=== PATIENT | female | born 1995 | race African-American/Black ===

== ENCOUNTER 2018-05-09 23:47 | Inpatient (IN) ==
[2018-05-10] MEDS ORDERED: RINGER'S SOLUTION,LACTATED 1,000 ML IV ONE (00:02)
[2018-05-10] MEDS ORDERED: OXYTOCIN/DEXTROSE 5%-WATER 30 UNITS/500 ML BAG IV ONE ×2 (00:02→05:15)
[2018-05-10] MEDS ORDERED: BUTORPHANOL TARTRATE 2 MG/ML VIAL IV PRN (00:02)
[2018-05-10] MEDS ORDERED: MISOPROSTOL 100 MCG TABLET VG PRN (00:02)
[2018-05-10] MEDS ORDERED: RINGER'S SOLUTION,LACTATED 1,000 ML IV PRN (00:02)
[2018-05-10] MEDS ORDERED: PENICILLIN G POTASSIUM 5 MILLIONUNT in DEXTROSE 5 % IN WATER 100 ML IV ONE ×2 (00:02)
[2018-05-10 00:29] LABS: Hematocrit 27.9 % (37.0-47.0); Hemoglobin 8.3 gm/dL (12.5-16.0); Mean Cell Volume 76.6 fl (78-100); Mean Corpuscular Hemoglobin 22.8 pg (27-31); Mean Corpuscular Hgb Conc 29.7 g/dl (32-36); Mean Platelet Volume 11.8 fl (8-12.5); Platelet Count 203 K/mm3 (150-450); Red Blood Count 3.64 M/mm3 (4.2-5.4); Red Cell Distribution Width 18.4 % (11.5-14.0); White Blood Count 10.6 K/mm3 (4.0-10.5)
[2018-05-10 00:31] LABS: Total Cells Counted 100
[2018-05-10 00:48] LABS: Atypical (Reactive) Lymph 2 % (0-2); Band 2 % (0-2.0); Lymphocyte 25 % (20-51); Monocyte 3 % (0-9); Neutrophil 68 % (42-75); Neutrophil # 7.2 K/mm3 (1.3-6.0)
[2018-05-10 00:49] LABS: Anisocytosis 2+; Hypochromia 2+; Platelet Estimate Normal (NORMAL)
[2018-05-10 00:50] LABS: Microcytosis 2+; Tear Drop Cells 1+
[2018-05-10 02:16] LABS: Cocaine Ur Negative (NEGATIVE); Urine Barbiturate Negative (NEGATIVE); Urine Benzodiazepines Negative (NEGATIVE); Urine Opiates Negative (NEGATIVE); Urine PCP Negative (NEGATIVE); Urine THC Negative (NEGATIVE)
[2018-05-10] MEDS ORDERED: PENICILLIN G POTASSIUM 2.5 MILLIONUNT in DEXTROSE 5 % IN WATER 100 ML IV SCH ×2 (04:02)
[2018-05-10] MEDS ORDERED: NALOXONE HCL 1 MG/1 ML SYRG IV PRN (04:28)
[2018-05-10] MEDS ORDERED: ONDANSETRON HCL/PF 2 MG/ML VIAL IV PRN (04:28)
[2018-05-10] MEDS ORDERED: BUPIVACAINE HCL/0.9 % NACL/PF 250 ML EP PRN (04:28)
[2018-05-10] MEDS ORDERED: fentaNYL CITRATE/PF 50 MCG/ML AMPUL IT SCH (04:30)
--- NOTE | 2018-05-10 05:09 | ANES ---
Anesthesia Pre Procedure Eval Vitals/Labs: Last Vital Signs Temp 36.7 C 05/10/18 00:20 Pulse 77 05/10/18 00:20 Resp 16 05/10/18 00:20 BP 127/64 05/10/18 00:20 Pulse Ox 99 05/10/18 00:20 HOME MEDICATIONS ferrous sulfate 325 mg (65 mg iron) tablet 325 mg PO DAILY tab 01/08/18 [Last Taken 01/26/18] vitamin,calcium,vvhcacpu-mjhr-nfnlh acid tablet 1 tab PO DAILY 01/08/18 [Last Taken 01/26/18] Allergies/Adverse Reactions: Allergies Allergy/AdvReac Type Severity Reaction Status Date / Time No Known Allergies Allergy Verified 05/09/18 23:54 - Planned Procedure Planned Procedure: INDUCTION 201705-10-18 Medication List Reviewed:: Yes Allergies Verified: Yes Medical History (Last Reviewed 05/10/18 @ 05:04 by Alberto Chavira CRNA) state, incidental (Acute) Onset Date: 08/12/17 No active medical problems Surgical History (Last Reviewed 05/10/18 @ 05:04 by Alberto Chavira CRNA) Onset Date: 01/2017 Elective Family History (Last Reviewed 05/10/18 @ 05:04 by Alberto Chavira CRNA) Father Heart disease Dialysis patient Grandfather Cancer Grandmother Hypertension Mother Asthma - Family Anesthesia History Family History:: no untoward family reactions to anesthesia, no familial bleeding tendencies, no family history of clotting disorders, no family history of premature - Airway/Neck/Teeth Within Normal Limits:: Yes - Anesthesia Assessment and Plan ASA Class: PS, II Anesthesia Type Plan: Epidural - Called for epidural at approximately 0440. On arrival, just prior to five, patient had delivered.
[2018-05-10] MEDS ORDERED: BENZOCAINE/MENTHOL 81 SPRAY CAN TP PRN (05:15)
[2018-05-10] MEDS ORDERED: SENNOSIDES 8.6 MG TABLET PO PRN (05:15)
[2018-05-10] MEDS ORDERED: BISACODYL 10 MG SUPP.RECT RC PRN (05:15)
[2018-05-10] MEDS ORDERED: HYDROCORTISONE 30 APPL TUBE TP PRN (05:15)
[2018-05-10] MEDS ORDERED: diphenhydrAMINE HCL 25 MG CAPSULE PO PRN (05:15)
[2018-05-10] MEDS ORDERED: GLYCERIN/WITCH HAZEL LEAF 40 APPL BOX TP PRN (05:15)
--- NOTE | 2018-05-10 05:36 | OR ---
Operative Report - Dictated Report Narrative: Spontaneous Vaginal Delivery Note: 23 yo, , 39.3 weeks Elective induction of labor with cytotec 25 mcg per vagina x 1. GBS positive on penicillin SROM Analgesia: none SROM at 3 cm. Rapid progression from 5.5 cm to complete in less than 30 min. Head delivered in MAXIMO over the perineum. Nuchal cord x 1, reduced. Shoulder delivered and the rest of the baby delivered with ease. Baby cried at perineum. Baby placed on maternal abdomen for drying and care by the nursing. Cord was clamped and cut by the nurses (Briseyda and López). Cord blood was obtained. Placenta delivered intact with a 3 vessel cord. Mother and baby tolerated the delivery well. Due to the precipitous delivery, baby and placenta were delivered by the nurses. I examined the patient right after delivery and fundus was firm at umbilicus and there was no laceration. EBL 150 ml. Infant: female, 3297 grams, 7 lbs and 4.3 oz. 9/9. Time of delivery: 04:47 Markel Schaefer MD
[2018-05-10] MEDS: IBUPROFEN 800 MG TABLET PO PRN ×2 (06:26→19:26)
[2018-05-10] MEDS: HYDROcodone/ACETAMINOPHEN 1 EACH TABLET PO PRN ×2 (09:49→15:24)
[2018-05-10] MEDS: DOCUSATE SODIUM 100 MG CAPSULE PO SCH ×2 (09:49→23:18)
[2018-05-10] MEDS: FERROUS SULFATE 325 MG TABLET PO SCH ×2 (09:49→16:44)
[2018-05-11] MEDS: HYDROcodone/ACETAMINOPHEN 1 EACH TABLET PO PRN ×2 (04:19→21:12)
[2018-05-11] MEDS: IBUPROFEN 800 MG TABLET PO PRN ×2 (04:19→13:41)
[2018-05-11] MEDS: FERROUS SULFATE 325 MG TABLET PO SCH ×2 (09:10→17:49)
[2018-05-11] MEDS: DOCUSATE SODIUM 100 MG CAPSULE PO SCH ×2 (09:10→21:08)
--- NOTE | 2018-05-11 13:18 | PN ---
Subjective - Date and Time Seen Date: 05/11/18 Subjective Narrative: day 1, s/p no complaints. bottle feeding. normal lochia. Objective - Vitals Vitals: Last Vital Signs Temp 36.8 C 05/11/18 11:30 Pulse 72 05/11/18 11:30 Resp 18 05/11/18 11:30 BP 112/51 05/11/18 11:30 Pulse Ox 99 05/11/18 11:30 - Exam Constitutional: Present: Alert, Oriented x3, Cooperative Respiratory: Present: no respiratory distress Cardiovascular/Chest: Present: normal peripheral pulses Abdomen: Present: soft, nontender, nondistended, other - fundus firm at the umbilicus, non-tender Extremity: Present: normal range of motion, no pedal edema, no calf tenderness Skin Exam: Present: normal color, warm/dry, no cyanosis Appearance: Present: appropriate appearance Assessment/Plan Plan Narrative: A: day 1, s/p , stable and well. Plan: routine care. ambulation encouraged. Markel Schaefer MD
[2018-05-12] MEDS: HYDROcodone/ACETAMINOPHEN 1 EACH TABLET PO PRN (00:22)
[2018-05-12] MEDS: IBUPROFEN 800 MG TABLET PO PRN (07:52)
[2018-05-12] MEDS: DOCUSATE SODIUM 100 MG CAPSULE PO SCH ×2 (07:52→12:00)
[2018-05-12 08:07] VITALS: BP 106/65
--- NOTE | 2018-05-12 11:36 | PN ---
Subjective - Date and Time Seen Date: 05/12/18 Subjective Narrative: day 2, s/p doing well. no complaints. wants to go home. Objective - Vitals Vitals: Last Vital Signs Temp 36.7 C 05/12/18 07:56 Pulse 68 05/12/18 07:56 Resp 18 05/12/18 07:56 BP 106/65 05/12/18 07:56 Pulse Ox 98 05/12/18 07:56 - Exam Constitutional: Present: Alert, Oriented x3, Cooperative Respiratory: Present: no respiratory distress Cardiovascular/Chest: Present: normal peripheral pulses Abdomen: Present: soft, nontender, nondistended, other - fundus firm and below umbilicus Extremity: Present: normal range of motion, no pedal edema, no calf tenderness Skin Exam: Present: normal color, warm/dry, no cyanosis Appearance: Present: appropriate appearance Eye contact: Present: cooperative, good eye contact, normal speech Assessment/Plan Plan Narrative: A: day 2, s/p , stable and well. Plan: will discharge home today. Markel Schaefer MD
== END 2018-05-12 12:40 | disposition home or self-care (01) | DRG 806 ==
LOC: OB 23:47 → MS 05-11 09:41
PROVIDERS: ADMIT Obstetrics & Gynecology; ATTEND Obstetrics & Gynecology
CPT/HCPCS: 36415; 59025; 80307; 85007; 85025; 86850; 86900

== ENCOUNTER 2020-05-21 14:22 | Inpatient (IN) ==
[2020-05-21] MEDS ORDERED: DEXTROSE 5%-LACTATED RINGERS 1,000 ML IV PRN (15:27)
[2020-05-21] MEDS ORDERED: ONDANSETRON 4 MG TAB.RAPDIS PO PRN (15:27)
[2020-05-21] MEDS ORDERED: RINGER'S SOLUTION,LACTATED 1,000 ML IV ONE (15:27)
[2020-05-21] MEDS ORDERED: OXYTOCIN/0.9 % SODIUM CHLORIDE 30 UNITS/500 ML BAG IV ONE ×3 (15:27→23:49)
[2020-05-21] MEDS ORDERED: fentaNYL CITRATE/PF 50 MCG/ML AMPUL IT SCH (16:45)
[2020-05-21] MEDS ORDERED: NALOXONE HCL 1 MG/1 ML SYRG IV PRN (16:45)
[2020-05-21] MEDS ORDERED: ONDANSETRON HCL/PF 2 MG/ML VIAL IV PRN (16:45)
[2020-05-21] MEDS ORDERED: BUPIVACAINE HCL/0.9 % NACL/PF 250 ML EP PRN (16:45)
--- NOTE | 2020-05-21 16:51 | ANES ---
Anesthesia Pre Procedure Eval Vitals/Labs: Last Vital Signs Temp 36.3 C 05/21/20 15:43 Pulse 75 05/21/20 15:43 Resp 18 05/21/20 15:43 BP 126/84 05/21/20 15:43 Pulse Ox 100 05/21/20 15:43 HOME MEDICATIONS ferrous sulfate 325 mg (65 mg iron) tablet 325 mg PO DAILY #30 tab 01/22/20 [Last Taken Unknown] prenat.vits,italo,eyw-onyg-byakb 1 tab PO DAILY 01/22/20 [Last Taken Unknown] Allergies/Adverse Reactions: Allergies Allergy/AdvReac Type Severity Reaction Status Date / Time No Known Allergies Allergy Verified 05/21/20 13:58 - Planned Procedure Planned Procedure: pre eclampsia induction of labor Medication List Reviewed:: Yes Allergies Verified: Yes Medical History (Last Reviewed 05/21/20 @ 16:49 by Alberto Chavira CRNA) Anemia affecting (Acute) Onset Date: 01/22/20 state, incidental (Acute) Onset Date: 08/12/17 Anemia Onset Date: ~2017 with Surgical History (Last Reviewed 05/21/20 @ 16:50 by Alberto Chavira CRNA) Onset Date: 01/2017 Elective Family History (Last Reviewed 05/21/20 @ 16:50 by Alberto Chavira CRNA) Father Heart disease Dialysis patient Grandfather Cancer Grandmother Hypertension Mother Asthma - Family Anesthesia History Family History:: no untoward family reactions to anesthesia, no familial bleeding tendencies, no family history of clotting disorders, no family history of premature - Airway/Neck/Teeth Within Normal Limits:: Yes Teeth Condition: intact Mallampatti Score: 2 Thyromental (T-M) distance: > 6 cm Mandibulo Hyoid distance: > 3 cm - Respiratory Respiratory Physical: lungs clear Sleep Apnea currently treated: No Sleep Apnea by current assessment: No - Cardiovascular Cardiac History: other - Anemia Tolerate Activity: Fair Heart Sounds: S1 & S2, Regular - Anesthesia Assessment and Plan ASA Class: PS, II, E Anesthesia Type Plan: Epidural - CSE for labor analgesia
--- NOTE | 2020-05-21 17:20 | ANES ---
Anesthesia Procedure Note Procedure Note: ANESTHESIA PROCEDURE NOTE Date of Procedure: 05/21/2020 Time of procedure: 1655. Performed by: NEHEMIAS Gomes CRNA, MSN Aircraft Electrician: Sandy Moyer RN. Preprocedure diagnosis: Active labor, labor pain. Post procedure diagnosis: Same. Procedure:Epidural for labor analgesia L4-5. Indications: Labor pain. Findings: See below. Details of the procedure: The patient was placed on the side of the bed in sitting positionand prepped with DuraPrep then draped in a sterile fashion. Lidocaine 1% was infiltrated to the skin and subcutaneous tissues at the level of the L4-5 interspace. An 18-gauge Touhy needle was used to approach the epidural space with loss of resistance technique. The epidural catheter was then threaded approximately 4 cm in the epidural needle was removed. The catheter was taped in place and after careful aspiration 3 mL of 1.5% lidocaine with 1-200,000 epinephrine was injected without change in maternal heart rate or sensorium. . EBL: Minimal. Fluids: N/A. Specimen: N/A. Post procedure condition: The patient tolerated the procedure well with good relief. No complications were noted. Thank you for this consultation. Alberto Chavira CRNA, ARNP, MSN
--- NOTE | 2020-05-21 17:20 | ANES ---
Post Anesthesia Discharge - Transfer of Care Transfer of Care handoff given to nurse: Yes - Discharge from PACU Discharge from PACU when meets criteria: Yes - Comfortable post epidural
--- NOTE | 2020-05-21 17:33 | ANES ---
Post Anesthesia Assessment - Vital Signs Vitals: Last Vital Signs Temp 36.3 C 05/21/20 15:43 Pulse 75 05/21/20 15:43 Resp 18 05/21/20 15:43 BP 126/84 05/21/20 15:43 Pulse Ox 100 05/21/20 15:43 Airway Patency: Normal - Mental Status Level Of Consciousness: Awake, Alert, Appropriate - Pain Level Pain Score: 0 - N/V Assessment Nausea/Vomiting Presence: None Dehydration:: No
--- NOTE | 2020-05-21 18:25 | HP ---
Chief Complaint - Chief Complaint Date of Service: 05/21/20 Time of Service: 18:05 Chief Complaint: Preeclampsia/labor History of Present Illness: 25 yo at 38w1d presents to L&D for induction of labor for preeclampsia and noted to be in spontaneous labor. Patient was seen in office today for routine office visit where she was found to have elevated BPs 143/81 and 143/79 with Pr/Cr ratio of 400. When she arrived to &D she was artemio q1-2 min and had cervical change from 2-3/60/-2 to 4/50/-2. She denies IVEY, visual changes, or epigastric pain. This complicated by anemia, late care, single umbilical artery, and now preeclampsia. Rh positive Rubella immune GBS negative Medical History (Last Reviewed 05/21/20 @ 18:19 by Cheo Jesus DO) Anemia affecting (Acute) Onset Date: 01/22/20 state, incidental (Acute) Onset Date: 08/12/17 Anemia Onset Date: ~2018 with Surgical History: Surgical History (Last Reviewed 05/21/20 @ 18:19 by Cheo Jesus DO) Onset Date: 01/2017 Elective Family History: Family History (Last Reviewed 05/21/20 @ 18:19 by Cheo Jesus DO) Father Heart disease Dialysis patient Grandfather Cancer Grandmother Hypertension Mother Asthma Social History: (Last Reviewed 05/21/20 @ 18:19 by Cheo Jesus DO) Social History: Marital status: Single household members: children current occupational status: employed 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[employer] Highest level of school completed/degree received: GED or equivalent Service: No Tobacco: Smoking Status: Never smoker Alcohol: alcohol intake: never Substance Use: substance use type: does not use Dietary Habits: caffeine: Yes caffeine comment: occasional Type: carbonated beverages Review Of Systems (GEN) - Review of Systems Generalized/Overall Review: Present: No Symptoms Reported EENTM: Present: No Symptoms Reported Respiratory: Present: No Symptoms Reported Cardiac: Present: No Symptoms Reported Abdominal: Present: Other - contractions Genitourinary: Present: No Symptoms Reported Musculoskeletal: Present: No Symptoms Reported Neurological: Present: No Symptoms Reported Skin: Present: No Symptoms Reported Endocrine: Present: No Symptoms Reported Immunizations: IMMUNIZATION HX Immunizations Up to Date Yes History of Influenza Vaccine No Hx Pneumococcal Vaccination No Allergies/Adverse Reactions: Allergies Allergy/AdvReac Type Severity Reaction Status Date / Time No Known Allergies Allergy Verified 05/21/20 13:58 Home Medications: HOME MEDICATIONS ferrous sulfate 325 mg (65 mg iron) tablet 325 mg PO DAILY #30 tab 01/22/20 [Last Taken Unknown] prenat.vits,italo,wqw-embi-pepcd 1 tab PO DAILY 01/22/20 [Last Taken Unknown] Exam - Exam Vital Signs: Vital Signs - Last Taken Temp 36.3 C 05/21/20 15:43 Pulse 75 05/21/20 15:43 Resp 18 05/21/20 15:43 BP 126/84 05/21/20 15:43 Pulse Ox 100 05/21/20 15:43 Constitutional: Present: Alert, Oriented x3, Cooperative ENT Exam: Present: hearing grossly normal Neck: Present: non-tender, normal inspection. Absent: thyromegaly Back Exam: Present: no CVA tenderness Breasts: Present: Exam deferred Respiratory: Present: lungs clear, no respiratory distress Cardiovascular/Chest: Present: normal peripheral pulses, regular rate, rhythm, no edema Abdomen: Present: soft, nontender, no rebound tenderness, other - gravid /Rectal: Present: Other - Cervix 4/50/-2 Extremity: Present: non-tender, no pedal edema, no calf tenderness Skin Exam: Present: normal color, warm/dry, no cyanosis Lymphatic: Present: no adenopathy Neurologic: Present: alert, normal mood/affect, oriented x 3, other - DTR 2/4, no clonus Appearance: Present: appropriate appearance, appropriate insight Eye contact: Present: cooperative, good eye contact Thoughts: Present: normal thought pattern, normal mood /affect Assessment/Plan - Assessment/Plan (1) Preeclampsia Assessment: Admit for labor. Epidural PRN. Preeclampsia precautions. Problem: Acute Qualifiers: Trimester: third trimester Qualified Code(s): O14.93 - Unspecified pre- eclampsia, third trimester (2) Labor established Problem: Acute (3) Two vessel umbilical cord in welch , antepartum Problem: Acute (4) Anemia affecting Problem: Chronic Qualifiers: Trimester: third trimester (5) Late care Problem: Acute
--- NOTE | 2020-05-21 18:30 | PN ---
Progess Note - Interim Date: 05/21/20 Time: 18:26 Narrative: 05/21/20 18:26 Patient comfortable with epidural Vital signs stable. FHT: 140 baseline, reassuring contractions q 1-2 min Cervix: 4/50/-2, AROM-clear at 1730 Impression: Intrauterine at 38 weeks in labor complicated by pre eclampsia Plan: Continue present plan
--- NOTE | 2020-05-21 19:09 | PN ---
Progess Note - Interim Date: 05/21/20 Time: 19:07 Narrative: 05/21/20 19:07 Patient comfortable with epidural Vital signs stable. FHT: 140 baseline, reassuring contractions q 1-2 min Cervix: 4/70/-2 Impression: Intrauterine at 38 weeks labor complicated by preeclampsia Plan: Continue present plan
--- NOTE | 2020-05-21 23:47 | OR ---
Operative Report - Dictated Report Narrative: Spontaneous vaginal delivery of vigorously crying viable female at 2329 on 05/21/2020 with Apgars 9 and 9, weighing 3366 g in SANDI position with tight nuchal cord x1. Cord clamping delayed approximately 1 minute Placenta delivered complete, intact, with three vessel cord Estimated blood loss: Less than 50 ml Anesthesia: Epidural Lacerations: None History for MU History for MU Definition: * The number of deliveries resulting in a live the patient experienced prior to current hospitalization * The previous delivery of live twins or any live multiple gestation is considered one live event. *If primagravida or nulliparous is documented select zero for the number of previous live births. Live Events: Live Events: 3
[2020-05-21] MEDS ORDERED: GLYCERIN/WITCH HAZEL LEAF 40 APPL BOX TP PRN (23:49)
[2020-05-21] MEDS ORDERED: BISACODYL 10 MG SUPP.RECT RC PRN (23:49)
[2020-05-21] MEDS ORDERED: HYDROCORTISONE 30 APPL TUBE TP PRN (23:49)
[2020-05-21] MEDS ORDERED: IBUPROFEN 800 MG TABLET PO PRN (23:49)
[2020-05-21] MEDS ORDERED: BENZOCAINE/MENTHOL 81 SPRAY CAN TP PRN (23:49)
[2020-05-21] MEDS ORDERED: SENNOSIDES 8.6 MG TABLET PO PRN (23:49)
[2020-05-22] MEDS: IBUPROFEN 800 MG TABLET PO PRN ×3 (01:02→20:42)
[2020-05-22] MEDS: oxyCODONE HCL/ACETAMINOPHEN 1 TAB TABLET PO PRN ×3 (05:21→20:42)
--- NOTE | 2020-05-22 10:46 | PN ---
Subjective - Date and Time Seen Date: 05/22/20 Time: 10:43 Objective - Vitals Vitals: Last Vital Signs Temp 36.3 C 05/22/20 06:59 Pulse 65 05/22/20 06:59 Resp 16 05/22/20 06:59 BP 109/57 05/22/20 06:59 Pulse Ox 98 05/22/20 06:59 Patient denies complaints. Specifically denies headache, visual changes, or epigastric pain. Bottlefeeding. Lochia wnl abdomen - soft, nontender Uterus - semi-firm, at umbilicus - 2 No calf tenderness, DTR-2/4, no clonus Impression: day #1 - s/p spontaneous vaginal delivery. Preeclampsia- resolved. Plan: Continue routine care Cauti Physician Documentation - Urinary Catheter Management Urethral (Bernal) Date of Insertion: 05/21/20 Time of Insertion: 17:48 Date of Removal: 05/21/20 Time of Removal: 23:24 Assessment/Plan - Problems/Diagnosis (1) Preeclampsia Problem: Resolved Qualifiers: Trimester: third trimester Qualified Code(s): O14.93 - Unspecified pre- eclampsia, third trimester (2) Labor established Problem: Resolved (3) Two vessel umbilical cord in welch , antepartum Problem: Acute (4) Anemia affecting Problem: Chronic Qualifiers: Trimester: third trimester (5) Late care Problem: Acute
[2020-05-22] MEDS: DOCUSATE SODIUM 100 MG CAPSULE PO SCH ×2 (11:43→20:54)
[2020-05-22] MEDS: FERROUS SULFATE 325 MG TABLET PO SCH (11:43)
[2020-05-22] MEDS: PRENATAL VITS96/IRON FUM/FOLIC 1 TAB TABLET PO SCH (11:44)
[2020-05-23] MEDS: oxyCODONE HCL/ACETAMINOPHEN 1 TAB TABLET PO PRN (03:08)
[2020-05-23] MEDS: IBUPROFEN 800 MG TABLET PO PRN (03:08)
[2020-05-23] MEDS: FERROUS SULFATE 325 MG TABLET PO SCH (08:45)
[2020-05-23] MEDS: DOCUSATE SODIUM 100 MG CAPSULE PO SCH (08:45)
[2020-05-23] MEDS: PRENATAL VITS96/IRON FUM/FOLIC 1 TAB TABLET PO SCH (08:45)
--- NOTE | 2020-05-23 09:41 | PN ---
Subjective - Date and Time Seen Date: 05/23/20 Time: 09:39 Objective - Vitals Vitals: Last Vital Signs Temp 36.3 C 05/22/20 06:59 Pulse 53 L 05/23/20 00:20 Resp 16 05/23/20 00:20 BP 98/54 05/23/20 00:20 Pulse Ox 98 05/23/20 00:20 Patient denies complaints. Bottlefeeding Lochia wnl abdomen - soft, nontender Uterus -firm, at umbilicus - 2 No calf tenderness Impression: day #2 - s/p spontaneous vaginal delivery. Plan: Routine discharge instructions. Cauti Physician Documentation - Urinary Catheter Management Urethral (Bernal) Date of Insertion: 05/21/20 Time of Insertion: 17:48 Date of Removal: 05/21/20 Time of Removal: 23:24 Assessment/Plan - Problems/Diagnosis (1) Preeclampsia Problem: Resolved Qualifiers: Trimester: third trimester Qualified Code(s): O14.93 - Unspecified pre- eclampsia, third trimester (2) Labor established Problem: Resolved (3) Two vessel umbilical cord in welch , antepartum Problem: Acute (4) Anemia affecting Problem: Chronic Qualifiers: Trimester: third trimester (5) Late care Problem: Acute
--- NOTE | 2020-05-23 09:44 | DS ---
OB Discharge Summary (1) Preeclampsia Status: Resolved Qualifiers: Trimester: third trimester Qualified Code(s): O14.93 - Unspecified pre- eclampsia, third trimester (2) Labor established Status: Resolved (3) Two vessel umbilical cord in welch , antepartum Status: Acute (4) Anemia affecting Status: Chronic Qualifiers: Trimester: third trimester Qualified Code(s): O99.013 - Anemia complicating , third trimester (5) Late care Status: Acute Delivery Date: 05/21/20 Delivery Time: 23:29 :: 5 Para:: 4 Gestational weeks:: 38 Gestational days:: 0 Intrapartum Procedures: Spontaneous Vaginal Delivery, Delivered, Anesthesia - Epidural /OP Complications: Preeclampsia/GHTN Discharge Diagnosis: Term -Delivered - Discharge Information Date of Discharge: 05/23/20 Hospital Course: 25-year old now 5 para 4 presented to labor and delivery from office for induction of labor due to preeclampsia. Upon presentation to labor and delivery she was noted to be in labor. Her delivery and course were uncomplicated. She was instructed to follow-up with Dr. Du and 2 weeks for blood pressure check and to discuss her plans for sterilization. Discharge Location: Home Disposition: Home self-care Condition: Good Activity on Discharge:: Activity as tolerated, Pelvic Rest Discharge Diet: General/regular food Additional Patient Instructions (free text): [facility] follow up visit Jul 02 at 3:[address] Du. Ada's follow up appointment is Monday05/25/20 at 10:45 AM with Juju Castanon Bottle feed Ada every 3 to 4 hours. Burp her well. Always lay her on her back to sleep, in her own crib. No extra pillows, blankets or stuffed animals. No Co sleeping Blood type - B+ weight: 7 lb 6.7 oz Discharge weight : Bilirubin today : Please don't hesitate to call with any questions or concerns. [facility] - [phone], [facility] - [phone] Prescriptions (Any new or edited meds): Ferrous Sulfate 325 mg PO DAILY #60 tab Ibuprofen [Motrin] 200 - 800 mg PO Q6H PRN #100 tab PRN Reason: Pain Complete Home Medications List: Complete Home Medication List: prenat.vits,italo,zge-uxeb-iivht 1 tab PO DAILY 01/22/20 Ferrous Sulfate 325 mg PO DAILY #60 tab 05/22/20 Ibuprofen [Motrin] 200 - 800 mg PO Q6H PRN #100 tab 05/22/20 - Plan Discharge to:: Home Follow up in office in:: 2 weeks - [place] Information Weight (Grams): 3,366 Infant Sex: Female Score 1 min: 9 Score 5 min: 9 Complications: Multiple Variable Decels
[2020-05-23 11:46] VITALS: BP 107/76
== END 2020-05-23 17:30 | disposition home or self-care (01) | DRG 807 ==
LOC: LAB → OB 15:12
PROVIDERS: ADMIT Obstetrics & Gynecology; ATTEND Obstetrics & Gynecology
DX: O69.89X1 Labor and delivery complicated by other cord complications, fetus 1; O99.02 Anemia complicating childbirth; O14.94 Unspecified pre-eclampsia, complicating childbirth; Z37.0 Single live birth; Z3A.38 38 weeks gestation of pregnancy